=== PATIENT | female | born 1965 | race Hispanic/Latino ===

== ENCOUNTER 2018-02-06 09:47 | Day surgery (SDC) | payer OTHER ==
[2018-02-03 15:25] VITALS: BP 145/77
[2018-02-06] VITALS (19 sets, daily range): BP systolic 118–142; BP diastolic 59–88
[~2018-02-06] VITALS: Ht 152.4 cm; Wt 71.0 kg
[2018-02-06] MEDS: CEFAZOLIN SODIUM 1 GM VIAL IVP ONE ×2 (08:00→12:00)
[~2018-02-06 09:47] MED LIST: NAPR500T6 PO
[2018-02-06] MEDS ORDERED: CEFAZOLIN SODIUM 1 GM VIAL ONE (10:09)
[2018-02-06] MEDS ORDERED: LACTATED RINGERS 1000ML 1,000 ML IV ONE (10:09)
[2018-02-06] MEDS ORDERED: FENTANYL CITRATE PF 50 MCG/1 ML 5ML AMP IV ONE (11:36)
[2018-02-06] MEDS ORDERED: PROPOFOL 10 MG/ML 20ML VIAL IV ONE (11:36)
[2018-02-06] MEDS ORDERED: ONDANSETRON HCL MDV 20ML 2 MG/ML VIAL ONE (11:36)
[2018-02-06] MEDS ORDERED: LIDOCAINE PF 2% 5ML ABBOJECT ONE (11:36)
[2018-02-06] MEDS ORDERED: MIDAZOLAM HCL 1 MG/ML 2ML VIAL ONE (11:36)
[2018-02-06] MEDS ORDERED: DEXAMETHASONE SOD PHOSPHATE 10MG/ML 1ML VIAL ONE (11:36)
[2018-02-06] MEDS ORDERED: FAMOTIDINE/PF 20 MG/2 ML VIAL IV ONE (11:49)
[2018-02-06] MEDS ORDERED: TYL3 PO (12:49)
[2018-02-06] MEDS ORDERED: MEPERIDINE-PF 25 MG/ML SYG ONE ×2 (13:00→13:09)
== END 2018-02-06 15:10 | disposition home or self-care (01) ==
LOC: DAH 09:47 → EDSTATUS 15:30
PROVIDERS: ATTEND Orthopaedic Surgery
DX: S52.552A Other extraarticular fracture of lower end of left radius, initial encounter for closed fracture (principal); W18.30XA Fall on same level, unspecified, initial encounter; Y93.E8 Activity, other personal hygiene; Y92.89 Other specified places as the place of occurrence of the external cause; Y99.9 Unspecified external cause status; E78.00 Pure hypercholesterolemia, unspecified; M06.9 Rheumatoid arthritis, unspecified; Z79.899 Other long term (current) drug therapy; I10 Essential (primary) hypertension; Z90.710 Acquired absence of both cervix and uterus
CPT/HCPCS: 25606; 76000; A4218; A4649; A4930; A6223; J0690; J1100; J2001; J2175 ×2; J2250; J2704; J3010; J3490; J7120 ×2; Q4051

== ENCOUNTER → 2018-06-26 | Outpatient (CLI) | payer OTHER ==
[~2018-06-26] MED LIST changes: +TYL3 PO
== END | disposition home or self-care (01) ==
LOC: RAH 07:53
PROVIDERS: ATTEND Orthopaedic Surgery
DX: S52.532D Colles' fracture of left radius, subsequent encounter for closed fracture with routine healing (principal); M25.432 Effusion, left wrist; X58.XXXD Exposure to other specified factors, subsequent encounter
CPT/HCPCS: 73221